=== PATIENT | female | born 1960 | race Caucasian/White ===

== ENCOUNTER 2024-05-07 12:03 | Emergency (ER) | payer OTHER, SELFPAY ==
[2024-05-07 12:08] VITALS: BP 119/79; BP 134/99; PULSE 61; PULSE 72; RESP 16; TEMP 36.2; O2SAT 97; BMI 23.5
[2024-05-07] MEDS: Lidocaine HCl 1 % 20 ML VIAL SUBCUT (12:18)
--- NOTE | 2024-05-07 12:51 | ED.WOUNDLAC ---
HPI - Wound/Laceration General Chief Complaint: Wound/Laceration Stated Complaint: FALL,ARM LAC FROM STICK PER EMS Time Seen by Provider: 05/07/24 12:09 Source: patient and EMS Mode of arrival: EMS Limitations: no limitations History of Present Illness ED Provider: Merna Vora PA-C HPI narrative: 63 yo female presents to the ER for laceration sustained to her right forearm just prior to arrival. Patient was out walking her dogs when she accidentally tripped in the [place], falling to the ground and sustaining a laceration through her sweatshirt to her right forearm on the flexor surface. The wound was irregular proximally 4 x 4 cm, actively bleeding so EMS placed a dressing. Patient last got Tdap 2 years ago. She has no numbness, tingling or weakness in her forearm or hand. She is right-hand dominant. Onset (ago): minute(s) Extremity Location: right: forearm Place: outdoors Patient tetanus UTD: Yes Context: accidental Associated symptoms: pain Treatments prior to arrival: bandage Related Data Previous Rx's ?Medication ?Instructions ?Recorded amoxicillin 875 mg-potassium 1 tab PO BID #6 tabs 05/07/24 clavulanate 125 mg tablet Allergies Allergy/AdvReac Type Severity Reaction Status Date / Time No Known Allergies Allergy Verified 05/07/24 12:14 Review of Systems Review of Systems: Yes all other systems are reviewed and are negative [facility] Social History Social History Advance Directives: No Physical Exam Vital Signs: Vital Signs: Last Vital Signs Temp 97.1 F 05/07/24 13:36 Pulse 61 05/07/24 13:36 Resp 16 05/07/24 13:36 BP 119/79 05/07/24 13:36 Pulse Ox 97 05/07/24 13:36 O2 Del Method Room Air 05/07/24 13:36 BMI result Body Mass Index 23.5 Appearance: Alert. Oriented X3. No acute distress. HEENT: normal inspection CVS: Normal heart rate and rhythm. Pulses normal. Respiratory: No respiratory distress. Skin: Skin warm and dry. Normal skin color. Normal skin turgor. No rashes. Extremities: Irregularly shaped 4 cm x 4 cm, proximally 1 cm wide superficial wound with exposed adipose tissue on the proximal forearm on the extensor surface. No active bleeding. Neurovascularly intact distally. Neuro: Oriented X 3. No motor deficit. No sensory deficit. 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 No foreign body or debris on examination. Wound appears clean. Her tetanus shot is up-to-date. Low clinical suspicion for bony involvement. Wound was irrigated with copious amounts of saline and cleaned with Betadine. Nine sutures were used to repair the wound. Patient was given wound care instructions, return precautions. Will prescribe 3 days of empiric antibiotics prevent infection. Stable for discharge home. Differential Diagnosis Differential Diagnoses: The differential diagnosis associated with the presentation includes Skin tear, deep laceration, superficial laceration, foreign body, puncture wound Independent Historian Clinical information obtained from an independent historian. History obtained from or confirmed by: EMS Tests considered The following testing was considered but not selected: Considered forearm x-ray however low suspicion for bony involvement Prescription Management I considered prescription management with: Pain Medication and Antibiotic Procedures Laceration Laceration 1: Site: upper extremity Side (If applicable): right Size (cm): 8 Description: irregular Depth: simple, single layer Local Anesthetic: lidocaine 1% Amount of anesthesia used (mL): 5 Pre-repair: wound explored, irrigated extensively and deep structures intact Skin layer closed with: nylon Size (cm): 4-0 Number of sutures: 9 Technique: simple, interrupted Critical Care Time Critical Care Time Critical Care Time: No Discharge Plan Discharge Clinical Impression: Laceration Patient Disposition: Home, Self-Care Instructions: Laceration (DC) Additional Instructions: 9 sutures were were used to close your wound today You will need your stitches out in 10 days. See you doctor for this or come back to the ER and we will remove them. Do not get wet for 24 hours, after that you can briefly wash with soap and water then pat dry. Keep wound clean and covered. Do not submerge in water, no swimming. Take Tylenol and Motrin as needed for pain. Elevate as needed for pain and swelling. Take the prescribed antibiotic for the next 3 days help prevent infection If you develop signs of infection including increased pain, swelling, redness or drainage of pus come back to the ER for further evaluation. Prescriptions: New amoxicillin-pot clavulanate 875-125 mg tablet 1 tab PO BID Qty: 6 0RF Interventions: ED Discharge Assessment Last Done: 05/07/24 13:36 Discharge Date/Time: 05/07/24 13:38 Print Language: [place]
[2024-05-07 13:36] VITALS: BP 119/79; PULSE 61; RESP 16; TEMP 36.2; O2SAT 97
== END 2024-05-07 13:38 | disposition home or self-care (01) ==
PROVIDERS: Emergency Provider Emergency Medicine; PCP Internal Medicine
DX: S51.811A Laceration without foreign body of right forearm, initial encounter (principal); W01.118A Fall on same level from slipping, tripping and stumbling with subsequent striking against other sharp object, initial encounter; Y93.K1 Activity, walking an animal; Y92.821 Forest as the place of occurrence of the external cause; Y99.9 Unspecified external cause status
CPT/HCPCS: 12004; 99282; 99284; J2003